=== PATIENT | female | born 1995 | race Caucasian/White ===

== ENCOUNTER 2016-07-03 09:01 | Day surgery (SDC) | payer OTHER ==
[~2016-07-03 09:01] MED LIST: HYDROCODON-ACE1 EA16 PO; MULTIVITAMINS1 EAC6 PO; TRI-SPRINTEC T1 EACH PO; ZOFRAN4 M2 PO
== END 2016-07-03 17:43 ==
LOC: SRG 09:01 → SHSB 09:05 → PACU 13:31 → SHSB 14:05
PROC: 0FT44ZZ Resection of Gallbladder, Percutaneous Endoscopic Approach (ICD-10-PCS; principal; 2016-07-03)
DX: K80.10 Calculus of gallbladder with chronic cholecystitis without obstruction (principal); I89.8 Other specified noninfective disorders of lymphatic vessels and lymph nodes; Z79.3 Long term (current) use of hormonal contraceptives; Z79.899 Other long term (current) drug therapy
CPT/HCPCS: J0690; J1170; J2405; J7030